=== PATIENT | female | born 1955 | race Caucasian/White ===

== ENCOUNTER → 2020-05-21 | Outpatient (CLI) | payer OTHER ==
[~2020-05-21] MED LIST: Desyrel50 MG; FOLBIC RF TABL1 EACH; Homocysteine F1 EACH; METF500; NALT50
== END ==
LOC: LAB 11:22 → LAB SHORT 11:22
PROVIDERS: Nurse Practitioner Family
DX: Z01.419 Encounter for gynecological examination (general) (routine) without abnormal findings (principal)
CPT/HCPCS: G0145